=== PATIENT | male | born 1955 | race Caucasian/White ===

== ENCOUNTER → 2018-05-16 | Outpatient (CLI) | payer OTHER ==
--- NOTE | 2018-05-16 08:30 | NUR ---
0830am Received pt ambulatory to [facility] area in radiology. Identifierx2 in for PICC placement by DILico Meek and ordered by Myriam MONTGOMERY for jail antibiotics. Pt was consented and time out performed per policy. at bedside [phone]. Upon obtaining lab for procedure pt had vagal response with b/p 80/60. Placed in bed HOB and glucose obtained which was 146. Butterfly #[address]. Pt had second vagal response while in prep for PICC line placement by Gaviota MÉNDEZ Recovered to bp 138/88 sats 100% Ra Pr 66 Resp 16. No pain level. CXr performed and read by Dr Misael MONTGOMERY. Pt was discharged to private car per w/c with in presence. POC care discussed with Picc line Nurse Gaviota MÉNDEZ and papers given to patient. No c/o or concerns.
[2018-05-16 09:24] LABS: INR 0.96; PROTHROMBIN TIME 13.7 seconds (11.9-14.5)
[2018-05-16 09:25] LABS: PARTIAL THROMBOPLASTIN TIME 27.8 seconds (23.8-35.5)
[2018-05-16 09:34] LABS: BLOOD UREA NITROGEN 17 mg/dL (7-26); BUN/CREATININE RATIO 18 (6-25); CREATININE, SERUM 0.97 mg/dL (0.72-1.25); EST GLOMERULAR FILTRATION RATE > 60 ML/MIN (60-)
--- NOTE | 2018-05-16 10:11 | Diagnostic Imaging Report ---
PROCEDURE: A single AP view of the chest. COMPARISON: None. INDICATIONS: POST PICC LINE PLACEMENT FINDINGS: Lines/tubes: Left PICC tip at the cavoatrial junction. Lungs: The lungs are well inflated and clear. There is no evidence of pneumonia or pulmonary edema. Pleura: There is no pleural effusion or pneumothorax. Heart and mediastinum: The heart and the mediastinum are unremarkable. Bones: No acute bony abnormality. IMPRESSION: No acute cardiopulmonary disease. Kalyan Douglas D.O. Dictated by: Kalyan Douglas D.O. on 05/16/2018 at 10:21 Electronically approved by: Kalyan Douglas D.O. on 05/16/2018 at 10:21
== END ==
LOC: DX 08:08
PROVIDERS: ATTEND Internal Medicine Infectious Disease
DX: M86.072 Acute hematogenous osteomyelitis, left ankle and foot (principal)
CPT/HCPCS: 36415; 36569; 71045; 82565; 82948; 84520; 85049; 85610; 85730

== ENCOUNTER 2022-10-26 08:15 | Inpatient (IN) | payer OTHER ==
[2022-10-21 13:19] LABS: BASOPHILS # (AUTO) 0.1 (0.0-0.1); BASOPHILS % 0.7 % (0.0-1.0); EOSINOPHILS # (AUTO) 0.2 (0.0-0.4); EOSINOPHILS % 2.8 % (0.0-6.0); HEMATOCRIT 39.8 % (38.2-49.6); HEMOGLOBIN 13.2 g/dL (14.0-18.0); LYMPHOCYTES # (AUTO) 1.5 (1.0-3.2); LYMPHOCYTES % 20.7 % (18.0-39.1); MEAN CORPUSCULAR HEMOGLOBIN 31.6 pg (28-32); MEAN CORPUSCULAR HGB CONC 33.2 g/dL (31-35); MEAN CORPUSCULAR VOLUME 95.2 fL (81-99); MONOCYTES # (AUTO) 0.6 (0.2-0.8); MONOCYTES % 8.7 % (4.4-11.3); NEUTROPHILS # (AUTO) 4.7 (2.1-6.9); NEUTROPHILS % 66.3 % (38.7-80.0); PLATELET COUNT 225 x10e3/uL (140-360); RED BLOOD COUNT 4.18 x10e6/uL (4.3-5.7); RED CELL DISTRIBUTION WIDTH 13.9 % (11.7-14.4)
[2022-10-21 13:29] LABS: ALBUMIN 3.9 g/dL (3.5-5.0); ALBUMIN/GLOBULIN RATIO 1.1 (0.8-2.0); CALCIUM 9.7 mg/dL (8.4-10.2); CREATININE, SERUM 1.36 mg/dL (0.72-1.25)
[~2022-10-26] VITALS: Ht 195.6 cm; Wt 140.6 kg
[~2022-10-26 08:15] MED LIST: AMIODARONE HCL200 MG PO; BILBERRY80 MG PO; CEFTRIAXONE 1 GM VIAL ONE; ELIQUIS5 MG PO; FLOMAX0.4 MG PO; FLONASE ALLERG9.9 ML INH; GENTAMICIN 80MG/NS 100 ML 200 ML IV ONE; GLIPIZIDE5 MG PO; LEVOTHYROXINE50 MCG PO; METFORMIN HCL1000 MG PO; METOPROLOL SUCC25 MG PO; OZEMPIC0.25 MG/0. SC; SIMVASTATIN20 MG PO; SODIUM CHLORIDE 0.9% 1000ML 1,000 ML ONE; VITAMIN D PO
[2022-10-26] MEDS ORDERED: IOPAMIDOL 610MG/1ML 300 MG/ML VIAL IV ONE (08:36)
[2022-10-26] MEDS ORDERED: ACETAMINOPHEN 1000 MG/100 ML IV ONE (09:38)
[2022-10-26] MEDS ORDERED: PHENAZOPYRIDINE HCL 100 MG TAB PO PRN (10:00)
[2022-10-26] MEDS ORDERED: DIPHENHYDRAMINE HCL 25 MG CAP PO PRN (10:00)
[2022-10-26] MEDS ORDERED: ONDANSETRON HCL INJ 2MG/ML 2ML 2 MG/ML VIAL IV PRN ×2 (10:00→23:30)
[2022-10-26] MEDS ORDERED: ACETAMINOPHEN 1000 MG/100 ML IV PRN (10:00)
[2022-10-26] MEDS ORDERED: ACETAMINOPHEN/CODEINE 300MG - 30MG TAB PO PRN (10:00)
[2022-10-26] MEDS: FENTANYL CITRATE/PF 100MCG/2 ML INJ ONE ×4 (10:13→10:28)
[2022-10-26 11:22] LABS: BASOPHILS # (AUTO) 0.1 (0.0-0.1); BASOPHILS % 0.8 % (0.0-1.0); EOSINOPHILS # (AUTO) 0.2 (0.0-0.4); EOSINOPHILS % 2.8 % (0.0-6.0); HEMATOCRIT 35.4 % (38.2-49.6); HEMOGLOBIN 11.6 g/dL (14.0-18.0); LYMPHOCYTES # (AUTO) 1.8 (1.0-3.2); MEAN CORPUSCULAR HEMOGLOBIN 31.5 pg (28-32); MEAN CORPUSCULAR HGB CONC 32.8 g/dL (31-35); MEAN CORPUSCULAR VOLUME 96.2 fL (81-99); MONOCYTES # (AUTO) 0.6 (0.2-0.8); MONOCYTES % 9.2 % (4.4-11.3); NEUTROPHILS # (AUTO) 3.8 (2.1-6.9); NEUTROPHILS % 58.4 % (38.7-80.0); PLATELET COUNT 177 x10e3/uL (140-360); RED BLOOD COUNT 3.68 x10e6/uL (4.3-5.7); RED CELL DISTRIBUTION WIDTH 13.9 % (11.7-14.4)
[2022-10-26 11:44] LABS: ANION GAP 11.7 mmol/L (8-16); CREATININE, SERUM 1.23 mg/dL (0.72-1.25); POTASSIUM 4.7 mmol/L (3.5-5.1)
[2022-10-26 11:59] VITALS: PULSE 64; RESP 16; O2SAT 98
[2022-10-26 12:18] VITALS: BP 139/75; PULSE 64; RESP 18; TEMP 98.4; O2SAT 98
[2022-10-26 12:28] VITALS: BP 139/75; PULSE 64; RESP 18; TEMP 98.4; O2SAT 98
[2022-10-26] MEDS: SODIUM CHLORIDE 0.9% 1000ML 1,000 ML IV SCH (12:41)
[2022-10-26] MEDS ORDERED: FENTANYL CITRATE/PF 100MCG/2 ML INJ ONE (12:45)
[2022-10-26] MEDS ORDERED: DEXTROSE 50% SYRINGE 50 ML IV PRN ×2 (12:45→23:30)
[2022-10-26] MEDS ORDERED: ONDANSETRON HCL INJ 2MG/ML 2ML 2 MG/ML VIAL ONE (13:23)
[2022-10-26] MEDS ORDERED: SEVOFLURANE INHAL SOLN 250 ML PEN BTL ONE (13:23)
[2022-10-26] MEDS ORDERED: POVIDONE IODINE 0.05% 0.05 % ML PO ONE (13:23)
[2022-10-26] MEDS ORDERED: LIDOCAINE HCL 2% LOCAL INJ 5 ML SDV VIAL INJ ONE (13:23)
[2022-10-26] MEDS ORDERED: GLYCOPYRROLATE INJ 0.2 MG/ML VIAL ONE (13:23)
[2022-10-26] MEDS ORDERED: PROPOFOL IV EMULSION 10 MG/ML 20 ML VIAL ONE (13:23)
[2022-10-26] MEDS ORDERED: ROCURONIUM BROMIDE 10 MG/ML 5ML VIAL IV ONE (13:23)
[2022-10-26] MEDS ORDERED: NEOSTIGMINE 1 MG/ML 10ML VIAL ONE (13:23)
[2022-10-26 16:20] VITALS: BP 137/75; PULSE 63; RESP 18; TEMP 97.6; O2SAT 98
[2022-10-26] MEDS: INSULIN LISPRO 100 UNIT/1 ML 3ML VIAL SQ SCH ×2 (16:30→21:26)
[2022-10-26] MEDS: DOCUSATE SODIUM 100 MG CAP PO SCH (17:29)
[2022-10-26 20:00] VITALS: BP 143/70; PULSE 73; RESP 17; TEMP 98.4; O2SAT 99
[2022-10-26 20:32] VITALS: BP 143/70; PULSE 73; RESP 17; TEMP 98.4; O2SAT 99
[2022-10-26] MEDS ORDERED: LIDOCAINE 4% PATCH TP PRN (23:30)
[2022-10-26] MEDS ORDERED: SIMETHICONE 80 MG CHEW PO PRN (23:30)
[2022-10-26] MEDS ORDERED: HYDRALAZINE HCL 20 MG/ML VIAL IV PRN (23:30)
[2022-10-26] MEDS ORDERED: ALBUTEROL/IPRATROPIUM 3 ML NEB NEB PRN (23:30)
[2022-10-26] MEDS ORDERED: POTASSIUM CHLORIDE 20 MEQ TAB CR PO PRN (23:30)
[2022-10-26] MEDS ORDERED: BENZONATATE 100 MG CAP PO PRN (23:30)
[2022-10-26] MEDS ORDERED: MELATONIN 5 MG TABLET PO PRN (23:30)
[2022-10-26] MEDS ORDERED: DOCUSATE SODIUM 100 MG CAP PO PRN (23:30)
[2022-10-27] VITALS (7 sets, daily range): BP systolic 125–143; BP diastolic 60–78; PULSE 70–88; RESP 16–20; TEMP 97.2–98.1; O2SAT 95–98
[2022-10-27] MEDS: SODIUM CHLORIDE 0.9% 1000ML 1,000 ML IV SCH (03:52)
[2022-10-27 05:03] LABS: BASOPHILS # (AUTO) 0.1 (0.0-0.1); BASOPHILS % 0.7 % (0.0-1.0); EOSINOPHILS # (AUTO) 0.2 (0.0-0.4); EOSINOPHILS % 2.3 % (0.0-6.0); HEMATOCRIT 36.6 % (38.2-49.6); HEMOGLOBIN 12.1 g/dL (14.0-18.0); LYMPHOCYTES # (AUTO) 1.8 (1.0-3.2); MEAN CORPUSCULAR HEMOGLOBIN 31.6 pg (28-32); MEAN CORPUSCULAR HGB CONC 33.1 g/dL (31-35); MEAN CORPUSCULAR VOLUME 95.6 fL (81-99); MONOCYTES # (AUTO) 0.8 (0.2-0.8); MONOCYTES % 9.3 % (4.4-11.3); NEUTROPHILS # (AUTO) 5.3 (2.1-6.9); PLATELET COUNT 195 x10e3/uL (140-360); RED BLOOD COUNT 3.83 x10e6/uL (4.3-5.7)
[2022-10-27 05:31] LABS: ANION GAP 13.2 mmol/L (8-16); CALCIUM 8.6 mg/dL (8.4-10.2); CREATININE, SERUM 1.25 mg/dL (0.72-1.25); POTASSIUM 4.2 mmol/L (3.5-5.1)
[2022-10-27] MEDS: CEFTRIAXONE 2 GM in SODIUM CHLORIDE 0.9% 100 ML IV SCH (07:58)
[2022-10-27] MEDS: PANTOPRAZOLE SOD 40 MG TABEC PO SCH (07:58)
[2022-10-27] MEDS: TAMSULOSIN HCL 0.4 MG CAP PO SCH (09:17)
[2022-10-27] MEDS: LEVOTHYROXINE SODIUM 50 MCG TAB PO SCH (09:17)
[2022-10-27] MEDS: DOCUSATE SODIUM 100 MG CAP PO SCH ×2 (09:17→17:44)
[2022-10-27] MEDS: METOPROLOL SUCCINATE 25 MG TAB XL PO SCH ×2 (09:18→17:44)
[2022-10-27] MEDS: INSULIN LISPRO 100 UNIT/1 ML 3ML VIAL SQ SCH ×4 (09:42→22:09)
[2022-10-27] MEDS: SIMVASTATIN 20 MG TAB PO SCH (22:10)
[2022-10-28] VITALS (7 sets, daily range): BP systolic 130–151; BP diastolic 68–81; PULSE 64–70; RESP 18–20; TEMP 97.1–98.8; O2SAT 98–100
[2022-10-28 05:37] LABS: BASOPHILS # (AUTO) 0.1 (0.0-0.1); BASOPHILS % 0.8 % (0.0-1.0); EOSINOPHILS # (AUTO) 0.3 (0.0-0.4); EOSINOPHILS % 3.6 % (0.0-6.0); HEMATOCRIT 36.1 % (38.2-49.6); LYMPHOCYTES # (AUTO) 2.3 (1.0-3.2); LYMPHOCYTES % 29.2 % (18.0-39.1); MEAN CORPUSCULAR HEMOGLOBIN 31.5 pg (28-32); MEAN CORPUSCULAR HGB CONC 33.2 g/dL (31-35); MEAN CORPUSCULAR VOLUME 94.8 fL (81-99); MONOCYTES # (AUTO) 0.7 (0.2-0.8); MONOCYTES % 8.3 % (4.4-11.3); NEUTROPHILS # (AUTO) 4.6 (2.1-6.9); NEUTROPHILS % 57.5 % (38.7-80.0); PLATELET COUNT 196 x10e3/uL (140-360); RED BLOOD COUNT 3.81 x10e6/uL (4.3-5.7); RED CELL DISTRIBUTION WIDTH 13.6 % (11.7-14.4)
[2022-10-28 06:00] LABS: ANION GAP 12.9 mmol/L (8-16); CALCIUM 8.8 mg/dL (8.4-10.2); CREATININE, SERUM 1.02 mg/dL (0.72-1.25); POTASSIUM 3.9 mmol/L (3.5-5.1)
[2022-10-28] MEDS: CEFTRIAXONE 2 GM in SODIUM CHLORIDE 0.9% 100 ML IV SCH (07:31)
[2022-10-28] MEDS: INSULIN LISPRO 100 UNIT/1 ML 3ML VIAL SQ SCH ×4 (09:28→21:47)
[2022-10-28] MEDS: LEVOTHYROXINE SODIUM 50 MCG TAB PO SCH (09:29)
[2022-10-28] MEDS: TAMSULOSIN HCL 0.4 MG CAP PO SCH (09:29)
[2022-10-28] MEDS: DOCUSATE SODIUM 100 MG CAP PO SCH ×2 (09:29→17:38)
[2022-10-28] MEDS: METOPROLOL SUCCINATE 25 MG TAB XL PO SCH ×2 (09:30→17:39)
[2022-10-28] MEDS: PANTOPRAZOLE SOD 40 MG TABEC PO SCH (09:31)
[2022-10-28] MEDS ORDERED: SODIUM CHLORIDE 0.9% 250ML 250 ML ONE (12:18)
[2022-10-28] MEDS ORDERED: ONDANSETRON HCL 4 MG ORAL DISINTEGRATING TAB PO PRN (12:45)
[2022-10-28] MEDS: SIMVASTATIN 20 MG TAB PO SCH (21:46)
[2022-10-29 05:04] LABS: BASOPHILS # (AUTO) 0.1 (0.0-0.1); BASOPHILS % 0.7 % (0.0-1.0); EOSINOPHILS # (AUTO) 0.2 (0.0-0.4); EOSINOPHILS % 2.9 % (0.0-6.0); HEMATOCRIT 37.5 % (38.2-49.6); HEMOGLOBIN 12.4 g/dL (14.0-18.0); LYMPHOCYTES % 24.8 % (18.0-39.1); MEAN CORPUSCULAR HEMOGLOBIN 31.6 pg (28-32); MEAN CORPUSCULAR HGB CONC 33.1 g/dL (31-35); MEAN CORPUSCULAR VOLUME 95.7 fL (81-99); MONOCYTES # (AUTO) 0.8 (0.2-0.8); MONOCYTES % 9.8 % (4.4-11.3); NEUTROPHILS % 61.1 % (38.7-80.0); PLATELET COUNT 197 x10e3/uL (140-360); RED BLOOD COUNT 3.92 x10e6/uL (4.3-5.7); RED CELL DISTRIBUTION WIDTH 13.2 % (11.7-14.4)
[2022-10-29 05:16] LABS: ANION GAP 14.1 mmol/L (8-16); CREATININE, SERUM 1.2 mg/dL (0.72-1.25); POTASSIUM 4.1 mmol/L (3.5-5.1)
[2022-10-29] MEDS: CEFTRIAXONE 2 GM in SODIUM CHLORIDE 0.9% 100 ML IV SCH ×2 (06:28→09:59)
[2022-10-29] MEDS ORDERED: SODIUM CHLORIDE 0.9% 250ML 250 ML ONE (07:52)
[2022-10-29 09:11] VITALS: BP 137/69; PULSE 67; RESP 18; TEMP 97.7; O2SAT 96
[2022-10-29 09:19] VITALS: BP 137/69; PULSE 67; RESP 18; TEMP 97.7; O2SAT 96
[2022-10-29] MEDS ORDERED: ONDANSETRON ODT4 MG SL (09:46)
[2022-10-29] MEDS ORDERED: tylenol #3 PO (09:46)
[2022-10-29] MEDS ORDERED: ceftin PO (09:47)
[2022-10-29] MEDS ORDERED: SENOKOT-S TABL1 EACH PO (09:47)
[2022-10-29] MEDS: PANTOPRAZOLE SOD 40 MG TABEC PO SCH (09:59)
[2022-10-29] MEDS: DOCUSATE SODIUM 100 MG CAP PO SCH (09:59)
[2022-10-29] MEDS: TAMSULOSIN HCL 0.4 MG CAP PO SCH (09:59)
[2022-10-29] MEDS: LEVOTHYROXINE SODIUM 50 MCG TAB PO SCH (10:00)
[2022-10-29] MEDS: METOPROLOL SUCCINATE 25 MG TAB XL PO SCH (10:00)
[2022-10-29] MEDS: INSULIN LISPRO 100 UNIT/1 ML 3ML VIAL SQ SCH (10:01)
== END 2022-10-29 12:23 | disposition home or self-care (01) | DRG 713 ==
LOC: OR 08:15 → PACU V 10:12 → MED/SURG 11:12
PROVIDERS: ADMIT Internal Medicine; ATTEND Internal Medicine
PROC: 0VT08ZZ Resection of Prostate, Via Natural or Artificial Opening Endoscopic (ICD-10-PCS; 2022-10-26)
PROC: 0TBB8ZZ Excision of Bladder, Via Natural or Artificial Opening Endoscopic (ICD-10-PCS; principal; 2022-10-26 08:38)
DX: N40.1 Benign prostatic hyperplasia with lower urinary tract symptoms (principal); N39.0 Urinary tract infection, site not specified; C67.9 Malignant neoplasm of bladder, unspecified; E78.5 Hyperlipidemia, unspecified; K21.9 Gastro-esophageal reflux disease without esophagitis; E66.9 Obesity, unspecified; Z68.36 Body mass index [BMI] 36.0-36.9, adult; I10 Essential (primary) hypertension; I48.91 Unspecified atrial fibrillation; E03.9 Hypothyroidism, unspecified; R31.0 Gross hematuria; E11.65 Type 2 diabetes mellitus with hyperglycemia; R33.8 Other retention of urine; Z79.84 Long term (current) use of oral hypoglycemic drugs; Z79.01 Long term (current) use of anticoagulants
CPT/HCPCS: 36415; 71046; 74420; 80048; 80053; 82948; 83735; 85025; 88304; 88305; 93005; 94799; C1758; J0696; J1580; J2001; J2405; J2710; J7030; J7050